=== PATIENT | female | born 1950 | race Caucasian/White ===

== ENCOUNTER 2018-07-26 19:40 | Emergency (ER) | payer MEDICARE, OTHER ==
[2018-07-26] MEDS ORDERED: Tetracaine 0.5% OPTH.SOL 4 ML* 1 DROP BTL ONE (20:10)
[2018-07-26] MEDS ORDERED: Fluorescein Sodium TOPICAL* 1 MG TEST STRIP ONE (20:16)
--- NOTE | 2018-07-26 20:28 | ED ---
Throat Pain/Nasal Congestion - HPI Summary HPI Summary: The pt is a 67 y/o F presenting to the ED with a chief eye complaint. She reports there being some irritation in her R eye, onset 0200 this date. Per triage note, she reportedly went to a walk-in clinic for tx, who told her there was nothing they could do and instructed her to go to the ED. She denies fever. - History of Current Complaint Chief Complaint: EDEyeProblem Time Seen by Provider: 07/26/18 20:11 Hx Obtained From: Patient Onset/Duration: Sudden Onset, Lasting Hours, Still Present Severity: Moderate - Allergies/Home Medications Allergies/Adverse Reactions: Allergies Allergy/AdvReac Type Severity Reaction Status Date / Time No Known Allergies Allergy Verified 07/26/18 19:47 Home Medications: Home Medications Cyanocobalamin (Vitamin B-12) [Vitamin B-12] 500 mcg SL DAILY 07/26/18 [History Confirmed 07/26/18] Lisinopril 20 mg PO DAILY 07/26/18 [History Confirmed 07/26/18] Multivitamin with Minerals [One Daily Complete] 1 each PO DAILY 07/26/18 [ History Confirmed 07/26/18] PMH/Surg Hx/FS Hx/Imm Hx Previously Healthy: Yes Endocrine/Hematology History: Denies: Hx Diabetes Cardiovascular History: Denies: Hx Hypercholesterolemia Infectious Disease History: No Infectious Disease History: Denies: Traveled Outside the [place] in Last 30 Days - Family History Known Family History: Negative: Cardiac Disease - Social History Alcohol Use: None Hx Substance Use: No Substance Use Type: Reports: None Review of Systems Negative: Fever Positive: Other - eye irritation All Other Systems Reviewed And Are Negative: Yes Physical Exam - Summary Physical Exam Summary: Appearance: Well-appearing, Well-nourished, lying in bed comfortably Skin: Warm, dry, no obvious rash Eyes: sclera anicteric, no conjunctival pallor. Unable to see any foreign body or corneal abrasion upon exam. No conjunctival inflammation. Fluorescein staining is negative. The upper lid was everted and no foreign body is seen. ENT: mucous membranes moist, pharynx appears normal Neck: Supple, nontender Respiratory: Clear to auscultation, no signs of respiratory distress Cardiovascular: Normal S1, S2. No murmurs. Normal distal pulses in tibial and radial bilaterally. Abdomen: Soft, nontender, normal active bowel sounds present Musculoskeletal: Normal, Strength/ROM Intact Neurological: A&Ox3, awake and alert, mentation is normal, speech is fluent and appropriate Psychiatric: affect is normal, does not appear anxious or depressed Triage Information Reviewed: Yes Vital Signs On Initial Exam: Initial Vitals Temp Pulse Resp BP Pulse Ox 98.6 F 84 16 152/75 95 07/26/18 19:45 07/26/18 19:45 07/26/18 19:45 07/26/18 19:45 07/26/18 19:45 Vital Signs Reviewed: Yes Diagnostics - Vital Signs Vital Signs Temp Pulse Resp BP Pulse Ox 07/26/18 19:45 98.6 F 84 16 152/75 95 - Laboratory Lab Statement: Any lab studies that have been ordered have been reviewed, and results considered in the medical decision making process. EENT Course/Dx - Course Course Of Treatment: The pt is a 67 y/o F presenting to the ED with a chief eye complaint. She reports there being some irritation in her R eye, onset 0200 this date. Per triage note, she reportedly went to a walk-in clinic for tx, who told her there was nothing they could do and instructed her to go to the ED. There was no corneal abrasion, foreign body, or conjunctival inflammation upon examination. The pt will be discharged with a dx of conjunctivitis and instructions to follow up with her eye doctor, and she is agreeable with this plan. - Diagnoses Provider Diagnoses: Conjunctivitis Discharge - Sign-Out/Discharge Documenting (check all that apply): Patient Departure Patient Received Moderate/Deep Sedation with Procedure: No - Discharge Plan Condition: Good Disposition: HOME Patient Education Materials: Conjunctivitis (ED) Referrals: Spencer MANNING,Axel Currie [Primary Care Provider] - Additional Instructions: Contact your eyelet cutter on Saturday if the eye is still bothering you. The ointment should soothe it somewhat until then. If it gets alot worse, or if it seems like you're losing vision, contact Dr. Hinds's service right away. Often then can get an idea of the problem over the phone and if you need to get seen right away they can arrange to meet you at their office where they have all the necessary instruments to properly examine your eye. - Billing Disposition and Condition Condition: GOOD Disposition: Home - Attestation Statements Document Initiated by Néstoribsky: Yes Documenting Scribe: Vickie Ruth Provider For Whom Ronn is Documenting (Include Credential): Eleazar Morillo MD. Scribe Attestation: Vickie Mora, [email or web address] for Eleazar Morillo MD. on 07/27/18 at 0547. Scribe Documentation Reviewed: Yes Provider Attestation: The documentation as recorded by the néstoribe, Vickie Ruth accurately reflects the service I personally performed and the decisions made by me, Eleazar Morillo MD. Status of Scribe Document: Viewed
[2018-07-26] MEDS ORDERED: Erythromycin OPTH OINT* APPLIC OINT RIGHT EYE SCH (21:00)
[2018-07-26 21:42] VITALS: BP 147/75
== END 2018-07-26 21:41 | disposition home or self-care (01) ==
LOC: ED 19:40
DX: H10.9 Unspecified conjunctivitis (principal)
CPT/HCPCS: 99282; A9270-GY

== ENCOUNTER 2018-11-10 11:37 | Emergency (ER) | payer MEDICARE, OTHER ==
[2018-11-10] MEDS ORDERED: Ondansetron INJ* 2 MG/ML VIAL IV ONE (11:56)
[2018-11-10] MEDS ORDERED: Ketorolac INJ* 30 MG/ML 1 ML VIAL IV PUSH ONE (11:56)
[2018-11-10] MEDS ORDERED: Morphine 4 MG/ML VIAL (1 ml) 4 MG/ML VIAL IV ONE (11:59)
[2018-11-10 12:10] LABS: ABS Basophils 0.1 10^3/ul (0-0.2); ABS Eosinophils 0.2 10^3/ul (0-0.6); ABS Lymphocytes 2.3 10^3/ul (1.0-4.8); ABS Monocytes 0.6 10^3/ul (0-0.8); ABS Neutrophils 4.9 10^3/ul (1.5-7.7); Hematocrit 43 % (35-47); Hemoglobin 14.6 g/dL (12.0-16.0); Lymphocyte % 28.5 %; Mean Corpuscular HGB Conc 34 g/dL (31-36); Mean Corpuscular Hemoglobin 32 pg (27-31); Mean Corpuscular Volume 94 fL (80-97); Mean Platelet Volume 10.2 fL (7.4-10.4); Platelet Count 204 10^3/uL (150-450); Red Blood Count 4.54 10^6 /uL (3.70-4.87); Red Cell Distribution Width 13 % (10-15); White Blood Count 8.1 10^3/uL (3.5-10.8)
[2018-11-10] MEDS ORDERED: NS 0.9% 1000 ML** 1,000 ML IV ONE ×2 (12:14→14:27)
[2018-11-10] MEDS ORDERED: HYDROmorphone INJ1* 1 MG/ML SYRINGE IV ONE (12:25)
[2018-11-10 12:28] LABS: Albumin 4.6 g/dL (3.2-5.2); Albumin/Globulin Ratio 1.5 (1-3); BUN/Creatinine Ratio 26.7 (8-20); C Reactive Protein 4.35 mg/L (<8.01); Calcium 9.6 mg/dL (8.6-10.3); EGFR African American 92.4 (>60); EGFR Non-African American 76.4 (>60); Globulin 3.1 g/dL (2-4); Magnesium 2.1 mg/dL (1.9-2.7); Potassium 4.1 mmol/L (3.5-5.0); Total Bilirubin 0.4 mg/dL (0.2-1.0); Total Protein 7.7 g/dL (6.4-8.9)
[2018-11-10] MEDS ORDERED: Tamsulosin CAP* 0.4 MG PO ONE (14:26)
--- NOTE | 2018-11-10 15:27 | ED ---
Abdominal Pain/Female - HPI Summary HPI Summary: this patient is a 68-year-old female with no significant PMH presenting [facility] with severe right-sided flank pain which is nonradiating. Pain is currently a 10/10. Patient arrives by way of EMS and is in obvious distress and holding R flank area. Denies nausea, however at Zofran prior to arrival. Denies any abdominal pain. Denies any constipation or diarrhea. No history of kidney stones in the past. No history of UTIs. - History of Current Complaint Chief Complaint: EDFlankPain Stated Complaint: RIGHT FLANK PAIN PER EMS Time Seen by Provider: 11/10/18 11:45 Hx Obtained From: Patient ?: No Onset/Duration: Sudden Onset Timing: Constant Severity Initially: Severe Severity Currently: Severe Pain Intensity: 10 Pain Scale Used: 0-10 Numeric Location: Flank Radiates: No Character: Sharp Aggravating Factor(s): Nothing Alleviating Factor(s): Nothing Associated Signs and Symptoms: Positive: Diaphoresis - Risk Factors Ectopic Risk Factor: Negative Ovarian Torsion Risk Factor: Negative Allergies/Adverse Reactions: Allergies Allergy/AdvReac Type Severity Reaction Status Date / Time No Known Allergies Allergy Verified 11/10/18 11:45 PMH/Surg Hx/FS Hx/Imm Hx Previously Healthy: Yes Endocrine/Hematology History: Denies: Hx Diabetes Cardiovascular History: Denies: Hx Hypercholesterolemia - Surgical History Surgery Procedure, Year, and Place: cholecystectomy - Immunization History Hx Pertussis Vaccination: No Immunizations Up to Date: Yes Infectious Disease History: No Infectious Disease History: Denies: Traveled Outside the [place] in Last 30 Days - Family History Known Family History: Negative: Cardiac Disease - Social History Occupation: Unemployed Lives: With Family Alcohol Use: None Hx Substance Use: No Substance Use Type: Reports: None Smoking Status (MU): Never Smoked Tobacco Review of Systems Negative: Fever, Chills, Fatigue, Skin Diaphoresis Negative: Palpitations, Chest Pain Negative: Shortness Of Breath, Cough Negative: Vomiting, Diarrhea, Nausea Positive: see HPI, flank pain Negative: Arthralgia, Myalgia Skin: Negative Neurological: Negative All Other Systems Reviewed And Are Negative: Yes Physical Exam Triage Information Reviewed: Yes Vital Signs On Initial Exam: Initial Vitals Temp Pulse Resp BP Pulse Ox 96.9 F 75 22 160/77 95 11/10/18 11:40 11/10/18 11:40 11/10/18 11:40 11/10/18 11:40 11/10/18 11:40 Vital Signs Reviewed: Yes Appearance: Positive: Well-Appearing, Well-Nourished Skin: Positive: Warm, Skin Color Reflects Adequate Perfusion Head/Face: Positive: Normal Head/Face Inspection Eyes: Positive: EOMI, Conjunctiva Clear Neck: Positive: Supple, No Lymphadenopathy Respiratory/Lung Sounds: Positive: Clear to Auscultation, Breath Sounds Present Cardiovascular: Positive: RRR, Pulses are Symmetrical in both Upper and Lower Extremities Abdomen Description: Positive: Nontender, Soft, CVA Tenderness (R). Negative: CVA Tenderness (L) Bowel Sounds: Positive: Present Musculoskeletal: Positive: Normal, Strength/ROM Intact Neurological: Positive: Sensory/Motor Intact, Alert, Oriented to Person Place, Time Psychiatric: Positive: Affect/Mood Appropriate Diagnostics - Vital Signs Vital Signs Temp Pulse Resp BP Pulse Ox 11/10/18 12:28 22 11/10/18 12:22 22 11/10/18 11:40 96.9 F 75 22 160/77 95 - Laboratory Lab Results: Lab Results 11/10/18 11/10/18 11/10/18 Range/Units 12:01 12:01 12:01 WBC 8.1 (3.5-10.8) 10^3/uL RBC 4.54 (3.70-4.87) 10^6 /uL Hgb 14.6 (12.0-16.0) g/dL Hct 43 (35-47) % MCV 94 (80-97) fL MCH 32 H (27-31) pg MCHC 34 (31-36) g/dL RDW 13 (10-15) % Plt Count 204 (150-450) 10^3/uL MPV 10.2 (7.4-10.4) fL Neut % (Auto) 61.1 % Lymph % (Auto) 28.5 % Bucks % (Auto) 7.2 % Eos % (Auto) 2.0 % Baso % (Auto) 1.2 % Absolute Neuts (auto) 4.9 (1.5-7.7) 10^3/ul Absolute Lymphs (auto) 2.3 (1.0-4.8) 10^3/ul Absolute Monos (auto) 0.6 (0-0.8) 10^3/ul Absolute Eos (auto) 0.2 (0-0.6) 10^3/ul Absolute Basos (auto) 0.1 (0-0.2) 10^3/ul Absolute Nucleated RBC 0.0 10^3/ul Nucleated RBC % 0.0 Sodium 139 (135-145) mmol/L Potassium 4.1 (3.5-5.0) mmol/L Chloride 107 (101-111) mmol/L Carbon Dioxide 24 (22-32) mmol/L Anion Gap 8 (2-11) mmol/L BUN 20 (6-24) mg/dL Creatinine 0.75 (0.51-0.95) mg/dL Est GFR ( Amer) 92.4 (>60) Est GFR (Non-Af Amer) 76.4 (>60) BUN/Creatinine Ratio 26.7 H (8-20) Glucose 163 H (70-100) mg/dL Lactic Acid 1.8 (0.5-2.0) mmol/L Calcium 9.6 (8.6-10.3) mg/dL Magnesium 2.1 (1.9-2.7) mg/dL Total Bilirubin 0.40 (0.2-1.0) mg/dL AST 24 (13-39) U/L ALT 35 (7-52) U/L Alkaline Phosphatase 51 (34-104) U/L C-Reactive Protein 4.35 (<8.01) mg/L Total Protein 7.7 (6.4-8.9) g/dL Albumin 4.6 (3.2-5.2) g/dL Globulin 3.1 (2-4) g/dL Albumin/Globulin Ratio 1.5 (1-3) Lipase 53 (11.0-82.0) U/L Result Diagrams: 11/10/18 12:01 11/10/18 12:01 Lab Statement: Any lab studies that have been ordered have been reviewed, and results considered in the medical decision making process. Abdominal Pain Fem Course/Dx - Course Course Of Treatment: Physical examination, patient is in severe distress and holding right flank. No abdominal tenderness throughout. Lungs CTA. RRR. She does become tachycardic for moments, but no febrile illness. She is endorsing severe pain and given 4L and morphine on arrival. She states this with very minimal effect and continues to report a/10 in pain. Refusing to go to CT scan due to pain. She is then given 1 mg Dilaudid. This with good effect and reduce her pain to a 3/10. She continues to endorse pain to the right flank. CT abdomen/pelvis obtained which shows a 2 mm calculus in the right ureterovesical junction with moderate to severe hydronephrosis. UA obtained which is negative for any infection. She is given Flomax in the ED as she continues to be in pain and is given 10mg hydrocodone. She reports this with good effect, however continues to be in approximately a 2/10 pain. She was placed on oxygen for a period of time due to de-satting from Dilaudid. On reexamination, sat is good on room air. She is given pain medication for passage of stone. Offered admission due to her pain, however she declines. She will return for any worsening sxs. Urology f/u. - Diagnoses Provider Diagnoses: Kidney stone, Hydronephrosis Discharge - Sign-Out/Discharge Documenting (check all that apply): Patient Departure Patient Received Moderate/Deep Sedation with Procedure: No - Discharge Plan Condition: Stable Disposition: HOME Prescriptions: Ketorolac TAB * [Toradol TAB *] 10 mg PO Q6H #16 tab oxyCODONE/Acetamin 10/325(NF) [Percocet 10/325 (NF)] 1 tab PO Q6H #12 tab MDD 4 Patient Education Materials: Kidney Stones (ED) Referrals: Spencer MANNING,Axel Currie [Primary Care Provider] - Additional Instructions: Toradol 4 times daily 4 days Do not take ibuprofen or other NSAIDs while taking this medication For extra pain control you may take oxycodone 10 mg 4 times daily as needed Please return to the ED if you develop any worsening pain I've given you a referral to urology Please follow-up, especially if you do not improve - Billing Disposition and Condition Condition: STABLE Disposition: Home
[2018-11-10] MEDS ORDERED: HYDROcodone/ACETAMIN 5-325 MG* 1 TAB PO ONE (15:51)
[2018-11-10 17:10] LABS: Urine Appearance Cloudy; Urine Bilirubin Negative (Negative); Urine Blood Negative (Negative); Urine Color Amber; Urine Glucose Negative (Negative); Urine Ketones Negative (Negative); Urine Nitrite Negative (Negative); Urine Protein Negative (Negative); Urine Urobilinogen Negative (Negative)
[2018-11-10 17:22] VITALS: BP 148/87
== END 2018-11-10 17:00 | disposition home or self-care (01) ==
LOC: ED 11:37
DX: N13.2 Hydronephrosis with renal and ureteral calculous obstruction (principal); R09.02 Hypoxemia
CPT/HCPCS: 36415; 74176; 80053; 81003; 83605; 83690; 83735; 85025; 86140; 96361; 96374; 96375; 99285; J1170; J1885; J2270; J2405